=== PATIENT | female | born 1990 | race Caucasian/White ===

== ENCOUNTER 2017-09-10 08:52 | Emergency (ER) | payer BC ==
[2017-09-10] MEDS ORDERED: Ondansetron ODT 4 MG TAB ONE (09:19)
[2017-09-10] MEDS ORDERED: Ibuprofen 800 MG TAB ONE (09:19)
[2017-09-10 09:27] LABS: Bilirubin Negative (Negative); Blood, Urine Trace (Negative); Clarity Clear (Clear); Glucose, Urine (Dipstick) Negative (Negative); Leukocyte Negative (Negative); Nitrite Negative (Negative); Protein, Urine (Dipstick) Trace mg/dL (Neg-Trace); Urobilinogen 0.2 mg/dL (0.2-1.0)
[2017-09-10 09:28] LABS: Pregnancy Test - Urine (BHCG) Negative (Negative)
[2017-09-10 09:29] LABS: Pregu Control Background? CLEAR/WHITE (CLR/WHITE); Pregu Control Bar Appear? YES (CONTROL BAR)
[2017-09-10 09:34] LABS: RBC/HPF 0-3 HPF (0-3)
[2017-09-10 09:35] LABS: Bacteria/HPF Rare-Few HPF (None Seen); Squamous Epithelial 0-3 HPF (0-3); WBC/HPF 0-3 HPF (0-3)
--- NOTE | 2017-09-10 11:17 | ULT ---
PELVIC ULTRASOUND WITH DOPPLER: (transvaginal, transvaginal, barajas scale, color flow, spectral Doppler) HISTORY: Pelvic pain. FINDINGS: The uterus measures 7 x 3.3 x 4.3 cm without focal mass or endometrial fluid. An IUD is present. Th e image measures 6 mm in thickness. The right ovary measures 3.2 x 2.2 x 3.5 cm and the left ovary measures 4.1 x 2.5 x 3.8 cm. No adnex al mass is seen. Flow is demonstrated to both ovaries. There is free fluid in the cul-de-sac. IMPRESSION: No significant abnormalities are seen. POS: [facility]
== END 2017-09-10 11:24 | disposition home or self-care (01) ==
LOC: SCSER 08:52
DX: R10.2 Pelvic and perineal pain (principal); F41.9 Anxiety disorder, unspecified; F32.9 Major depressive disorder, single episode, unspecified; Z79.899 Other long term (current) drug therapy
CPT/HCPCS: 76856; 81003; 81015; 81025; 87480; 87491; 87510; 87591; 87660; Q0162